=== PATIENT | female | born 1990 | race African-American/Black ===

== ENCOUNTER 2022-08-27 00:01 | Emergency (ER) | payer SELFPAY ==
[~2022-08-27] VITALS: Ht 170.2 cm; Wt 58.0 kg
[2022-08-27 00:04] VITALS: BP 113/70; PULSE 71; RESP 17; TEMP 99.1; O2SAT 100
[2022-08-27] MEDS ORDERED: ACETAMINOPHEN 325MG TABLET PO STA (00:14)
[2022-08-27] MEDS ORDERED: LIDOCAINE HCL/PF 1% 10 MG/ML 5ML VIAL INFIL ONE (00:15)
[2022-08-27] MEDS ORDERED: BACITRACIN ZINC OINT UDPKT TOP ONE (00:15)
[2022-08-27] MEDS ORDERED: ACETAMINOPHEN WITH CODEINE 300/30MG TABLET PO NR (03:18)
== END 2022-08-27 05:02 | disposition left against medical advice (07) ==
LOC: ER 00:32
DX: S01.81XA Laceration without foreign body of other part of head, initial encounter (principal); X58.XXXA Exposure to other specified factors, initial encounter; Y93.89 Activity, other specified; Y92.89 Other specified places as the place of occurrence of the external cause; Y99.8 Other external cause status
CPT/HCPCS: 70450; 70486; 99284; J3490; Z7610